=== PATIENT | female | born 1970 | race Caucasian/White ===

== ENCOUNTER 2018-06-18 12:41 | Emergency (ER) | payer OTHER ==
[~2018-06-18] VITALS: Ht 160 cm; Wt 75.0 kg
[2018-06-18 13:08] LABS: BASOPHILS # (AUTO) 0.1 X10'3 (0-0.2); BASOPHILS % (AUTO) 0.8 % (0-1); EOSINOPHILS # (AUTO) 0.1 X10'3 (0-0.9); EOSINOPHILS % (AUTO) 1.1 % (0-6); HEMATOCRIT 39.4 % (35.0-45.0); HEMOGLOBIN 13.5 g/dl (12.0-16.0); LYMPHOCYTES # (AUTO) 1.9 X10'3 (1.1-4.8); LYMPHOCYTES % (AUTO) 27.7 % (21-51); MEAN CORPUSCULAR HEMOGLOBIN 31.9 PG (27.0-31.0); MEAN CORPUSCULAR HGB CONC 34.3 % (33.0-36.5); MEAN CORPUSCULAR VOLUME 92.9 FL (78-98); MEAN PLATELET VOLUME 8.4 FL (7.4-10.4); MONOCYTES # (AUTO) 0.4 X10'3 (0-0.9); MONOCYTES % (AUTO) 5.9 % (2-12); NEUTROPHILS # (AUTO) 4.5 X10'3 (1.8-7.7); NEUTROPHILS % (AUTO) 64.5 % (42-75); PLATELET COUNT 270 X10'3 (140-440); RED BLOOD COUNT 4.24 X10'6 (4.20-5.60); RED CELL DISTRIBUTION WIDTH 12.8 % (11.5-14.5); WHITE BLOOD COUNT 7.1 X10'3 (4.5-11.0)
[2018-06-18 13:18] LABS: PARTIAL THROMBOPLASTIN TIME 28 SECONDS (22-32)
[2018-06-18 13:25] LABS: ALANINE AMINOTRANSFERASE 21 U/L (12-78); ALBUMIN 3.9 G/DL (3.4-5.0); ALBUMIN/GLOBULIN RATIO 1.1 (1.1-1.5); ALKALINE PHOSPHATASE 61 IU/L (46-116); ANION GAP 9 (8-16); ASPARTATE AMINO TRANSFERASE 14 U/L (10-37); BILIRUBIN,TOTAL 1.1 MG/DL (0.1-1.0); BLOOD UREA NITROGEN 10 MG/DL (7-18); BUN/CREATININE RATIO 12.7 (6.6-38.0); CALCIUM 8.9 MG/DL (8.5-10.1); CHLORIDE 103 MMOL/L (99-107); CREATININE 0.79 MG/DL (0.40-0.90); GLUCOSE 94 MG/DL (70-104); POTASSIUM 3.9 MMOL/L (3.5-5.1); SODIUM 138 MMOL/L (135-145); TOTAL CARBON DIOXIDE 25.8 MMOL/L (24-32); TOTAL PROTEIN 7.6 G/DL (6.4-8.2); eGFR 77 ML/MIN
[2018-06-18] MEDS ORDERED: aspirin 81mg tab.chew PO ONE (14:50)
[2018-06-18] MEDS ORDERED: normal saline 1000ML IV soln IVB ONE (14:50)
[2018-06-18] MEDS ORDERED: iohexol 350MG/ML 100ml bottle IV ONE (14:51)
[2018-06-18] MEDS ORDERED: MECL12.584 PO (16:02)
[2018-06-18] MEDS ORDERED: meclizine 12.5mg tablet PO ONE (16:05)
[2018-06-18 16:19] VITALS: BP 119/58
== END 2018-06-18 16:21 | disposition home or self-care (01) ==
LOC: ER 12:41
DX: R06.00 Dyspnea, unspecified (principal); R07.9 Chest pain, unspecified; R42 Dizziness and giddiness; R94.31 Abnormal electrocardiogram [ECG] [EKG]; Z90.89 Acquired absence of other organs; Z87.891 Personal history of nicotine dependence; Z88.8 Allergy status to other drugs, medicaments and biological substances; Z79.899 Other long term (current) drug therapy
CPT/HCPCS: 36415; 71045; 71275; 80053; 83735; 84484; 85025; 85610; 85730; 93005; 96360; 99285; J7030; Q9967; J8597

== ENCOUNTER 2024-04-01 13:40 | Emergency (ER) | payer MEDICAID, SELFPAY ==
[~2024-04-01] VITALS: Ht 162.6 cm; Wt 56.3 kg
[~2024-04-01 13:40] MED LIST: MECL-231 PO
[2024-04-01] MEDS ORDERED: ketorolac trometh inj. 60 MG/2 ML VIAL IM ONE (15:30)
[2024-04-01] MEDS ORDERED: PRED20TA PO (15:53)
[2024-04-01] MEDS: ketorolac trometh. 30mg/ml inj. IM ONE (15:53)
[2024-04-01] MEDS: dexamethasone sod phosphate 10mg/ml inj IM STA (15:54)
[2024-04-01 16:08] VITALS: BP 149/79; PULSE 60; TEMP 98.6; O2SAT 100
[2024-04-01 16:20] VITALS: RESP 17
== END 2024-04-01 16:22 | disposition home or self-care (01) ==
LOC: ER 13:41
DX: M75.102 Unspecified rotator cuff tear or rupture of left shoulder, not specified as traumatic (principal); Z88.8 Allergy status to other drugs, medicaments and biological substances; Z79.899 Other long term (current) drug therapy
CPT/HCPCS: 73030; 96372; 99284; J1100; J1885

== ENCOUNTER 2024-04-04 15:23 | Emergency (ER) | payer MEDICAID ==
[~2024-04-04] VITALS: Ht 160 cm; Wt 61.4 kg
[~2024-04-04 15:23] MED LIST changes: +PRED20TA PO
[2024-04-04 15:27] VITALS: BP 124/84; PULSE 79; RESP 17; TEMP 98.4; O2SAT 98
== END 2024-04-04 16:27 | disposition home or self-care (01) ==
LOC: ER 15:24
DX: S46.919A Strain of unspecified muscle, fascia and tendon at shoulder and upper arm level, unspecified arm, initial encounter (principal); Z88.8 Allergy status to other drugs, medicaments and biological substances; X58.XXXA Exposure to other specified factors, initial encounter; Y93.89 Activity, other specified; Y92.89 Other specified places as the place of occurrence of the external cause; Y99.8 Other external cause status
CPT/HCPCS: 99282